=== PATIENT | male | born 2000 | race Caucasian/White ===

== ENCOUNTER 2023-03-28 16:13 | Emergency (ER) | payer SELFPAY ==
--- OUTSIDE RECORDS SUMMARY | 2023-03-28 16:15 | XMS REPORT | Continuity of Care Document ---
:2000 Author Organization [facility] [place] [facility] t Address [address] [place] [address] [address] [place] [address] Care Team Providers Name Role Phone PCP, PATIENT DOES NOT HAVE A Primary Care Physician Unavaila JANICE Smith Attending Clinician Unavailable Janice oPlanco Attending Clinician Lalitha Crow Attending Clinician Horacio Wood DO Attending Clinician HORACIO WOOD Attending Clinician Unavailable HORACIO WOOD Admitting Clinician Unavailable Payers Payer Name Policy Type Policy Number Effective Date Expiration Date S [facility] [id number] 2020 00:00:00 Problems Condition Condition Condition Status Onset Resolution Last Treating Co mments Source Name Details Category Date Date Treatment Clinician Date No known No known Disease Unive rs active active ity of problems problems [facility] Allergies, Adverse Reactions, Alerts Allergy Allergy Status Severity Reaction(s) Onset Inactive Treating Comm ents Source Name Type Date Date Clinician NO KNOWN Drug Active Univers ALLERGIE Class ity of S [facility] Social History Social Habit Start Date Stop Date Quantity Comments Source Exposure to 2022-08-18 2022-08-28 Not sure [facility] SARS-CoV-2 (event) 00:00:00 12:22:00 Medica l Branch Sex Assigned At [birth year] [facility] 00:00:00 00:00:00 Medical Branch Smoking Status Start Date Stop Date Source Tobacco smoking consumption Univ [facility] Medical unknown Branch Medications Ordered Filled Start Stop Current Ordering Indication Dosage Frequency Signature Comments Components Source Medication Medication Date Date Medication? Clinician (SIG) Name Name NaCl 0.9% 2021- No 1000mL at 999 Uni vers (NS) bolus 07-08 mL/hr, ity of infusion 17:30: 17:50 1,000 mL, Antonio as 1,000 mL 00 :00 IV Medical Piggyback, Branch ONCE, 1 dose, On Fri07/08/22 at 1230, STAT ketorolac 2021- No 15mg 15 mg, Unive rs (TORADOL) 07-08 Slow IV ity of injection 17:00: 16:59 Push, Q6H, [place] 15 mg 00 :00 4 doses, Medical First dose Branch on Fri07/08/22 at 1200, Last dose on Fri07/09/22 at 0600, Routine ondansetron 2021- No 4mg 4 mg, Slow Univers (ZOFRAN 07-08 IV Push, ity of (PF)) 16:30: 16:25 ONCE, 1 [place] injection 4 00 :00 dose, On Medi octaviano mg [facility] Branch 07/08/22 at 1130, Routine ondansetron Yes [id number] 4mg Take 1 Univers 4 mg 9-19 tablet by ity of disintegrat 00:00: mouth [place] ing tablet 00 every 8 Medica l (eight) Branch hours as needed for Nausea and Vomiting (N/V). ondansetron Yes [id number] 4mg Take 1 Univers 4 mg 9-19 tablet by ity of disintegrat 00:00: mouth [place] ing tablet 00 every 8 Medica l (eight) Branch hours as needed for Nausea and Vomiting (N/V). omeprazole 2021- No [id number] 20mg Take 1 Univers 20 mg 9-19 10-20 capsule by ity of capsule 00:00: 04:59 mouth in [place] 00 :00 the Medical morning Branch for 30 days. Vital Signs Vital Name Observation Time Observation Value Comments Source Systolic blood 2022-08-28 20:00:58 140 mm[Hg] Univer sity of pressure [facility] Diastolic blood 2022-08-28 20:00:58 74 mm[Hg] Unive rsity of [facility] Heart rate 2022-08-28 20:00:58 96 /min [facility] [place] [facility] Respiratory rate 2022-08-28 20:00:58 18 /min [facility] [place] [facility] Oxygen saturation in 2022-08-28 20:00:58 100 /min University of Arterial blood by [facility] Pulse oximetry Branch Body temperature 2022-08-28 18:23:00 37.06 Annmarie [facility] [place] [facility] [place] Body height 2022-08-28 18:23:00 177.8 cm [facility] [place] [facility] [place] Body weight 2022-08-28 18:23:00 68.04 kg [facility] [place] [facility] BMI 2022-08-28 18:23:00 21.52 kg/m2 [facility] [place] [facility] Systolic blood 2022-07-08 19:05:12 128 mm[Hg] Univer sity of pressure [facility] Diastolic blood 2022-07-08 19:05:12 92 mm[Hg] Unive rsity of pressure [facility] Heart rate 2022-07-08 19:05:12 68 /min [facility] [place] [facility] Respiratory rate 2022-07-08 19:05:12 18 /min [facility] ersity of [facility] Oxygen saturation in 2022-07-08 19:05:12 97 /min University of Arterial blood by [facility] Pulse oximetry Branch Body temperature 2022-07-08 16:08:00 37.11 Annmarie [facility] ersity [facility] Body height 2022-07-08 16:08:00 177.8 cm [facility] [place] [facility] [place] Body weight 2022-07-08 16:08:00 65.772 kg [facility] [place] [facility] [place] BMI 2022-07-08 16:08:00 20.81 kg/m2 Universi ty [facility] Procedures Procedure Date / Time Performed Performing Clinician [facility] e CONSENT/REFUSAL FOR 2022-08-28 18:09:01 [facility] Name [facility] Branch TREATMENT CT ABDOMEN PELVIS WO 2022-07-08 16:54:00 Horacio Wood [facility] URINALYSIS 2022-07-08 16:31:00 Horacio Wood o f [facility] COMP. METABOLIC PANEL 2022-07-08 16:22:00 Horacio Wood [facility] ([id number]) Medical Branch CBC WITH DIFF 2022-07-08 16:22:00 Horacio Wood o f [facility] COVID-19 (ID NOW RAPID 2022-07-08 16:22:00 Horacio Wood [facility] TESTING) Medical Branch NOTICE OF PRIVACY 2022-07-08 15:55:02 Doctor Unassigned, No Univ [facility] PRACTICES Name Medical Branch CONSENT/REFUSAL FOR 2022-07-08 15:54:34 Doctor Unassigned, No [facility] AND Name [facility] Branch TREATMENT Encounters Start End Encounter Admission Attending Care Care Encounter Source Date/Time Date/Time Type Type Clinicians Facility Department ID 2022-08-28 2022-08-28 Emergency X ITALIARUST ERT [id number] Univers 12:24:00 14:03:00 JANICE burt [facility] 2022-08-28 2022-08-28 Emergency ItaliaRUST [id number] Univers 12:24:00 14:03:00 Janicepriyank PAYNE [id number] i ty of [place] [id number] [facility] [id number] [address] 2022-07-08 2022-07-08 Emergency Lalitha Williamson Vernell [facility] [id number] Univers 11:09:00 14:07:00 Horacio Wood [id number] ity [facility] [id number] [facility] [id number] [address] 2022-07-08 2022-07-08 Emergency X RUST ERT [id number] Univers 11:09:00 14:07:00 HORACIO burt [facility] Results This patient has no known results.
--- NOTE | 2023-03-28 16:49 | EDPHYS ---
Physician Documentation [facility] Name: Arthur Alberto Age: 22 yrs Sex: Male : 2000 Arrival Date: 03/28/2023 Time: 16:13 Bed IW5 Private MD: ED Physician Blayne March HPI: 03/28 16:40 This 22 yrs old Male presents to ER via Unassigned with complaints of STD Exposure. cp 16:40 Patient is a 22-year-old male who presents to the emergency department requesting cp testing for syphilis. Patient reports receiving a letter from the health department informing him that a sexual partner he has had in the past tested positive for syphilis that he needed to be tested. Patient does not have any specific complaints but does report generalized rash. Historical: - Allergies: 16:41 No Known Allergies; ld1 - PMHx: 16:41 None; ld1 - PSHx: 16:41 None; ld1 - Immunization history:: Adult Immunizations up to date, Client reports receiving the 2nd dose of the Covid vaccine. - Social history:: Smoking status: Patient denies any tobacco usage or history of. Patient/guardian denies using alcohol. ROS: 16:43 Constitutional: Negative for body aches, chills, fever, poor PO intake, weight loss. cp 16:43 Cardiovascular: Negative for chest pain, palpitations. 16:43 Respiratory: Negative for cough, shortness of breath, wheezing. 16:43 Abdomen/GI: Negative for abdominal pain, nausea, vomiting, and diarrhea. 16:43 Skin: Positive for rash, diffusely. 16:43 All other systems are negative. Exam: 16:44 Head/Face: Normocephalic, atraumatic. cp 16:44 Constitutional: The patient appears in no acute distress, alert, awake, non-toxic, well developed, well nourished. 16:44 Eyes: Periorbital structures: appear normal, Conjunctiva: normal, no exudate, no injection, Sclera: no appreciated abnormality, Lids and lashes: appear normal, bilaterally. 16:44 ENT: External ear(s): are unremarkable, Nose: is normal, Mouth: Lips: moist, Oral mucosa: moist. 16:44 Chest/axilla: Inspection: normal. 16:44 Cardiovascular: Rate: normal. 16:44 Respiratory: the patient does not display signs of respiratory distress, Respirations: normal, no use of accessory muscles, no retractions, labored breathing, is not present. 16:44 Abdomen/GI: Exam negative for discomfort, distension, guarding, Inspection: abdomen appears normal. 16:44 Skin: rash a mild rash is noted, rash can be described as excoriated, papular, and is diffusely located. Vital Signs: 16:41 BP 131 / 89; Pulse 77; Resp 18; Temp 98.1(TE); Pulse Ox 100% on R/A; Weight 61.23 kg; ld1 Height 5 ft. 8 in. ; Pain 0/10; 16:41 Body Mass Index 20.52 (61.23 kg, 172.72 cm) ld1 16:41 Pain Scale: Adult ld1 MDM: 16:46 Data reviewed: vital signs, nurses notes, and as a result, I will discharge patient. cp 16:48 Patient medically screened. cp Administered Medications: No medications were administered Disposition: 21:00 Co-signature as Attending Physician, Blayne March DO I was immediately available on-site ms3 in the Emergency Department for consultation in the care of the patient. Disposition Summary: 03/28/23 16:48 Discharge Ordered Location: Home cp Problem: new cp Symptoms: are unchanged cp Condition: Stable cp Diagnosis - Contact with and (suspected) exposure to infections with a predominantly sexual cp mode of transmission Followup: cp - With: Private Physician - When: 2 - 3 days - Reason: Recheck today's complaints Discharge Instructions: - Discharge Summary Sheet cp - Preventing Sexually Transmitted Infections, Adult cp Forms: - Medication Reconciliation Form cp - Thank You Letter cp - Antibiotic Education cp - Prescription Opioid Use cp Signatures: Jamie Crawford PA PA cp Blayne March DO DO ms3 Serena March, RN RN ld1
--- NOTE | 2023-03-28 16:49 | ER ---
Nurse's Notes [facility] Name: Arthur Alebrto Age: 22 yrs Sex: Male : 2000 Arrival Date: 03/28/2023 Time: 16:13 Bed IW5 Private MD: Diagnosis: Contact with and (suspected) exposure to infections with a predominantly sexual mode of transmission Presentation: 03/28 16:40 Chief complaint: Patient states: STD exposure. Coronavirus screen: At this time, the ld1 client does not indicate any symptoms associated with coronavirus-19. Ebola Screen: No symptoms or risks identified at this time. Initial Sepsis Screen: Does the patient meet any 2 criteria? No. Patient's initial sepsis screen is negative. Does the patient have a suspected source of infection? No. Patient's initial sepsis screen is negative. Risk Assessment: Do you want to hurt yourself or someone else? Patient reports no desire to harm self or others. Onset of symptoms was March 28, 2023. 16:40 Method Of Arrival: Ambulatory ld1 16:40 Acuity: NICA 4 ld1 Triage Assessment: 16:41 General: Appears in no apparent distress. comfortable, Behavior is calm, cooperative, ld1 appropriate for age. Pain: Denies pain. EENT: No signs and/or symptoms were reported regarding the EENT system. Neuro: Level of Consciousness is awake, alert, obeys commands, Oriented to person, place, time, situation. Cardiovascular: Capillary refill < 3 seconds Patient's skin is warm and dry. Respiratory: Airway is patent Respiratory effort is even, unlabored. GI: Abdomen is flat, non-distended. Historical: - Allergies: 16:41 No Known Allergies; ld1 - PMHx: 16:41 None; ld1 - PSHx: 16:41 None; ld1 - Immunization history:: Adult Immunizations up to date, Client reports receiving the 2nd dose of the Covid vaccine. - Social history:: Smoking status: Patient denies any tobacco usage or history of. Patient/guardian denies using alcohol. Vital Signs: 16:41 BP 131 / 89; Pulse 77; Resp 18; Temp 98.1(TE); Pulse Ox 100% on R/A; Weight 61.23 kg; ld1 Height 5 ft. 8 in. ; Pain 0/10; 16:41 Body Mass Index 20.52 (61.23 kg, 172.72 cm) ld1 16:41 Pain Scale: Adult ld1 ED Course: 16:17 Patient arrived in ED. im 16:17 Jamie Crawford PA is PHCP. mendoza 16:17 Blayne March DO is Attending Physician. cp 16:41 Triage completed. ld1 16:41 Arm band placed on right wrist. ld1 Administered Medications: No medications were administered Outcome: 16:48 Discharge ordered by MD. cp 16:54 Patient left the ED. ld1 Signatures: Jamie Crawford PA PA cp Sims, Lauren RN RN ld1 Aziza Arce im
[2023-03-28 17:42] VITALS: BP 131/89; TEMP 98.1; O2SAT 100
== END 2023-03-28 16:54 | disposition home or self-care (01) ==
LOC: ER 16:13
DX: Z20.2 Contact with and (suspected) exposure to infections with a predominantly sexual mode of transmission (principal)
CPT/HCPCS: 99281

== ENCOUNTER 2023-08-30 08:20 | Emergency (ER) | payer BC, SELFPAY ==
[2023-08-30] MEDS ORDERED: HALOPERIDOL LACT 5 MG/ML INJ ONE (08:49)
[2023-08-30] MEDS ORDERED: NA CHLORIDE 0.9% 1,000 ML ONE (08:49)
[2023-08-30] MEDS ORDERED: FAMOTIDINE 20 MG/2 ML VIAL IV ONE (08:49)
[2023-08-30 09:07] LABS: Absolute Lymphocytes (CBC) 2.7 K/uL (0.7-4.9); Hematocrit 41.7 % (39.6-49.0); Lymphocytes % 43.6 % (15.3-44.8); MCV 87.7 fL (80-100); MPV 7.7 fL (7.6-11.3); Platelets 248 thou/uL (152-406); RBC Red Blood Cell Count 4.76 M/uL (4.33-5.43)
[2023-08-30] MEDS ORDERED: DIPHENHYDRAMINE 50 MG/ML VIAL ONE (09:23)
[2023-08-30 09:25] LABS: Albumin 4.2 g/dL (3.4-5.0); Bilirubin Total 0.4 mg/dL (0.2-1.0); Protein, Total 7.5 g/dL (6.4-8.2)
--- NOTE | 2023-08-30 09:26 | ER ---
Nurse's Notes [facility] Name: Arthur Alberto Age: 22 yrs Sex: Male : 2000 Arrival Date: 08/30/2023 Time: 08:20 Bed 19 Private MD: Diagnosis: Abdominal pain, Generalized Presentation: 08/30 08:29 Chief complaint: N/V and upper abdominal pain x 1 month, worse over the last few days. hb Coronavirus screen: Client presents with at least one sign or symptom that may indicate coronavirus-19. Provider contacted for isolation considerations. Ebola Screen: No symptoms or risks identified at this time. Initial Sepsis Screen: Does the patient meet any 2 criteria? No. Patient's initial sepsis screen is negative. Does the patient have a suspected source of infection? No. Patient's initial sepsis screen is negative. Risk Assessment: Do you want to hurt yourself or someone else? Patient reports no desire to harm self or others. Onset of symptoms was July 2023. 08:29 Method Of Arrival: Ambulatory hb 08:29 Acuity: NICA 3 hb Historical: - Allergies: 08:30 No Known Allergies; hb - PMHx: 08:55 None; rs5 - Immunization history:: Adult Immunizations unknown. - Social history:: Smoking status: Patient denies any tobacco usage or history of. Screenin:25 [facility] ED Fall Risk Assessment (Adult) History of falling in the last 3 months, rs5 including since admission No falls in past 3 months (0 pts) Confusion or Disorientation No (0 pts) Intoxicated or Sedated No (0 pts) Impaired Gait No (0 pts) Mobility Assist Device Used No (0 pt) Altered Elimination No (0 pt) Score/Fall Risk Level 0 - 2 = Low Risk Oriented to surroundings, Maintained a safe environment. Abuse screen: Denies threats or abuse. 08:25 Nutritional screening: No deficits noted. Tuberculosis screening: No symptoms or risk rs5 factors identified. Assessment: 08:25 General: Appears in no apparent distress. uncomfortable, Behavior is calm, cooperative. rs5 Pain: Complains of pain in left lower quadrant Pain does not radiate. Pain currently is 8 out of 10 on a pain scale. Quality of pain is described as aching. Neuro: Level of Consciousness is awake, alert, obeys commands, Oriented to person, place, time, situation. Cardiovascular: Heart tones S1 S2 present Rhythm is regular. Respiratory: Airway is patent Respiratory effort is even, unlabored, Respiratory pattern is regular, symmetrical, Breath sounds are clear bilaterally. GI: Abdomen is flat, non-distended, Bowel sounds present X 4 quads. Abd is soft and non tender X 4 quads. : No signs and/or symptoms were reported regarding the genitourinary system. EENT: No signs and/or symptoms were reported regarding the EENT system. Derm: Skin is intact, Skin is pink, warm \T\ dry. Musculoskeletal: Range of motion: intact in all extremities. 09:05 Reassessment: MD notified of pt's c/o anxiety. . General: Appears uncomfortable, aa5 Behavior is anxious. Neuro: Level of Consciousness is awake, alert, obeys commands, Oriented to person, place, time, situation. Respiratory: Airway is patent Respiratory effort is even, unlabored, Respiratory pattern is tachypnea. Derm: Skin is pink, warm \T\ dry. 09:06 Reassessment: Pt ambulatory to restroom with steady gait. aa5 09:10 Reassessment: Pt back in bed, call campbell within reach, side rails x 1. aa5 09:20 Reassessment: Patient states symptoms have not improved. Pt states he wants to leave aa5 now, MD speaking to pt at this time. . Vital Signs: 08:29 BP 165 / 106; Pulse 62; Resp 16; Pulse Ox 100% on R/A; Weight 58.97 kg; Height 5 ft. 8 hb in. ; Pain 8/10; 08:35 BP 150 / 90; Pulse 87; Resp 20; Temp 97.9; Pulse Ox 100% ; Pain 7/10; sm8 09:11 BP 143 / 87; Pulse 64; Resp 28 S; Pulse Ox 100% on R/A; aa5 08:29 Body Mass Index 19.77 (58.97 kg, 172.72 cm) hb 08:29 Pain Scale: Adult hb 08:35 Pain Scale: Adult sm8 ED Course: 08:23 Patient arrived in ED. im 08:24 Alexis Davila MD is Attending Physician. ec2 08:25 Patient has correct armband on for positive identification. Placed in gown. Bed in low rs5 position. Side rails up X2. 08:30 Triage completed. hb 08:30 Arm band placed on. hb 08:32 Kirill Alvarado, RN is Primary Nurse. rs5 08:45 Inserted saline lock: 20 gauge in right antecubital area, using aseptic technique. rs5 Blood collected. 09:05 IV 22 to R FA noted . aa5 09:20 IV discontinued, intact, bleeding controlled, No redness/swelling at site. Pressure aa5 dressing applied. 09:20 No provider procedures requiring assistance completed. rs5 Administered Medications: 08:50 Drug: NS 0.9% IV 1000 ml IV at 1 bolus Per protocol; 1000 mL bolus Route: IV; Rate: 1 rs5 bolus; Site: right antecubital; 09:20 Follow up: IV Status: Order to discontinue infusion; IV Intake: 500ml aa5 08:50 Drug: Haloperidol IVP 5 mg IVP once Route: IVP; Site: right antecubital; rs5 09:05 Follow up: Response: No adverse reaction aa5 08:50 Drug: Famotidine IVP 20 mg IVP once; dilute with 10 mL 0.9% NaCl; give over 2 minutes rs5 Route: IVP; Site: left antecubital; 09:05 Follow up: Response: No adverse reaction aa5 09:12 Drug: diphenhydrAMINE IVP 50 mg IVP once Route: IVP; Site: right forearm; aa5 09:20 Follow up: Response: No adverse reaction aa5 Medication: 09:20 VIS not applicable for this client. aa5 Intake: 09:20 IV: 500ml; Total: 500ml. aa5 Outcome: 09:20 Discharged to home ambulatory, rs5 09:22 Condition: unchanged aa5 09:22 Discharge instructions given to N/A, pt left before discharge, left before discharge papers. 09:22 Patient left the ED. aa5 09:26 Discharge ordered by . ec2 Signatures: Marianna Jaramillo RN RN aa5 Dona Cantor RN RN Kirill Alvarado, RN RN rs5 Aziza Arce Scarlett 8 Alexis Davila MD MD ec2 Corrections: (The following items were deleted from the chart) 08:30 08:29 BP 165 / 106; Pulse 62bpm; Resp 16bpm; Pulse Ox 100% RA; Pain 8, Adult; hb hb 09:16 09:11 Pulse 64bpm; Resp 28bpm; Spontaneous; Pulse Ox 100% RA; aa5 aa5 :16 09:10 Reassessment: Pt back in bed, call campbell within reach, side rails x 2. . aa5 aa5 09: 09:26 Patient left the ED. rs5 aa5
--- NOTE | 2023-08-30 09:26 | EDPHYS ---
Physician Documentation [facility] Name: Arthur Alberto Age: 22 yrs Sex: Male : 2000 Arrival Date: 08/30/2023 Time: 08:20 Bed 19 Private MD: ED Physician Alexis Davila HPI: 08/30 08:32 This 22 yrs old Male presents to ER via Ambulatory with complaints of Abdominal Pain, ec2 Nausea/Vomiting. 08:32 Patient arrives today due to concern for abdominal pain with associated nausea and ec2 vomiting. States that he has had symptoms for over a year, has been hospitalized in the past and has had a colonoscopy with no diagnosed reason for his symptoms. Patient reports general issues with p.o. intake. States that he does smoke marijuana once to twice a day. Patient reports no fevers or chills, no urinary problems.. Historical: - Allergies: 08:30 No Known Allergies; hb - PMHx: 08:55 None; rs5 - Immunization history:: Adult Immunizations unknown. - Social history:: Smoking status: Patient denies any tobacco usage or history of. ROS: 08:32 Constitutional: as per hpi ec2 Exam: 08:32 Constitutional: GEN: NAD Head: atraumatic Eyes: EOMI Ears: External ears are ec2 normal. CV: regular rate LUNGS: no respiratory distress ABD: Soft, not guarding, not rigid, minimally tender SKIN: no evidence of rashes MSK: no evidence of trauma NEURO: moves all extremities equally Vital Signs: 08:29 BP 165 / 106; Pulse 62; Resp 16; Pulse Ox 100% on R/A; Weight 58.97 kg; Height 5 ft. 8 hb in. ; Pain 8/10; 08:35 BP 150 / 90; Pulse 87; Resp 20; Temp 97.9; Pulse Ox 100% ; Pain 7/10; sm8 09:11 BP 143 / 87; Pulse 64; Resp 28 S; Pulse Ox 100% on R/A; aa5 08:29 Body Mass Index 19.77 (58.97 kg, 172.72 cm) hb 08:29 Pain Scale: Adult hb 08:35 Pain Scale: Adult sm8 MDM: 08:24 Patient medically screened. ec2 08:32 ED course: Patient arrives today due to concern for abdominal pain with associated ec2 nausea and vomiting. Examination remarkable for abdominal findings as noted above. Patient with reassuring vital signs. Will obtain lab work, treat the patient is with Haldol, crystalloid as well as Pepcid. Currently considering processes such as hyperemesis cannabinoid, low suspicion for intra-abdominal infection such as appendicitis or cholecystitis, low suspicion for pancreatitis as well. Patient has had a significant work-up in the past at this point I do not feel he would benefit from any advanced imaging at this time. 09:25 Data reviewed: vital signs. ec2 09:25 ED course: Patient requesting to leave prior to results of lab work. Patient was ec2 informed discharge. CBC is reassuring, metabolic profile is pending.. 08/30 08:32 Order name: CBC with Diff; Complete Time: 09:18 ec2 08/30 08:32 Order name: CMP ec2 08/30 08:32 Order name: IV Saline Lock; Complete Time: 09:04 ec2 08/30 08:32 Order name: Labs collected and sent; Complete Time: 09:04 ec2 Administered Medications: 08:50 Drug: NS 0.9% IV 1000 ml IV at 1 bolus Per protocol; 1000 mL bolus Route: IV; Rate: 1 rs5 bolus; Site: right antecubital; 09:20 Follow up: IV Status: Order to discontinue infusion; IV Intake: 500ml aa5 08:50 Drug: Haloperidol IVP 5 mg IVP once Route: IVP; Site: right antecubital; rs5 09:05 Follow up: Response: No adverse reaction aa5 08:50 Drug: Famotidine IVP 20 mg IVP once; dilute with 10 mL 0.9% NaCl; give over 2 minutes rs5 Route: IVP; Site: left antecubital; 09:05 Follow up: Response: No adverse reaction aa5 09:12 Drug: diphenhydrAMINE IVP 50 mg IVP once Route: IVP; Site: right forearm; aa5 09:20 Follow up: Response: No adverse reaction aa5 Disposition Summary: 08/30/23 09:26 Discharge Ordered Notes: Location: Home ec2 Condition: Stable ec2 Diagnosis - Abdominal pain, Generalized ec2 Discharge Instructions: - Discharge Summary Sheet ec2 - Abdominal Pain, Adult ec2 Forms: - Medication Reconciliation Form ec2 - Thank You Letter ec2 - Antibiotic Education ec2 - Prescription Opioid Use ec2 - Patient Portal Instructions ec2 - Leadership Thank You Letter ec2 Signatures: Dispatcher [employer] Marianna Pena RN RN aa5 Dona Cantor RN RN Kirill Alvarado RN RN rs5 Alexis Davila MD MD ec2
[2023-08-30 09:27] LABS: Potassium 3.8 mEq/L (3.5-5.1)
[2023-08-30 09:38] VITALS: O2SAT 100
[2023-08-30 09:39] VITALS: TEMP 97.9
[2023-08-30 09:41] VITALS: BP 143/87
== END 2023-08-30 09:26 | disposition home or self-care (01) ==
LOC: ER 08:20
DX: R10.84 Generalized abdominal pain (principal); R11.2 Nausea with vomiting, unspecified
CPT/HCPCS: 85025; 36415; 80053; 99284; J1630; J1200; J7030